=== PATIENT | male | born 1940 | race Caucasian/White ===

== ENCOUNTER → 2018-06-21 | Outpatient (CLI) | payer MEDICARE ==
--- NOTE | 2018-06-26 22:00 | MR ---
EXAMINATION TYPE: MR Prostate wo/w con DATE OF EXAM: 06/21/2018 COMPARISON: None IMAGE QUALITY: Satisfactory. INDICATION: Elevated PSA. Prior right hip replacement. No previous prostate biopsy stated. PSA: None given Recent Biopsy and Date: None Pathology Report (If Applicable): Not applicable TECHNIQUE: Examination was performed using a 3T MRI without an endorectal coil. Multiparametric imaging was perf ormed with T2 mutliplanar sequences, axial diffusion weighted imaging and dynamic contrast enhanced i maging, utilizing 9 mL intravenous Gadavist. FINDINGS: Susceptibility artifact created from a right hip prosthesis limits evaluation. The diffusio n-weighted images and ADC maps are nearly nondiagnostic secondary to extensive susceptibility artifac t. On the T2-weighted sequences there is no clinically significant cancer identified. Findings below our with regards to T2-weighted images. Within the peripheral zone there are numerous areas of T2 linear and wedge-shaped hypointensity. Ther e is additional diffuse mild hypointensity with indistinct margin. Findings suggestive of chronic pro statitis. Within the central zone there are numerous circumscribed hypointense and few heterogeneous encapsulat ed nodules. These most commonly related to benign prostatic hyperplasia. PROSTATE VOLUME: 9.0 cm CC x 4.8 cm AP x 5.3 cm TR Vol= 107 cc PSA DENSITY: 21 ng/ml/cc IMPRESSION: Limited evaluation secondary to extensive susceptibility artifact generated from the jeannette ent's right hip prosthesis. In evaluation of T2-weighted images: 1. PI-RADS 2: low (clinically significant cancer is unlikely to be present). 2. Findings of moderate benign prostatic hyperplasia in an enlarged prostate gland with prostate volu me of 107 cc. False negative rates for MRI range from 5-20% depending on risk profile.
== END | disposition home or self-care (01) ==
LOC: RADMRIMAIN 09:53
PROVIDERS: ATTEND Urology
DX: C61 Malignant neoplasm of prostate (principal); Z96.641 Presence of right artificial hip joint
CPT/HCPCS: 82565; 84520; 72197; 36415; A9581